=== PATIENT | male | born 1980 | race Caucasian/White ===

== ENCOUNTER 2021-05-29 19:46 | Emergency (ER) | payer SELFPAY ==
[2021-05-29] MEDS ORDERED: Ketorolac 30 MG/ML SDV IM ONE (20:15)
[2021-05-29] MEDS ORDERED: Orphenadrine 60 MG/2 ML Inj IM ONE (20:15)
[2021-05-29] MEDS ORDERED: Acetaminophen 325 MG Tab PO ONE (20:48)
== END 2021-05-29 21:27 | disposition home or self-care (01) ==
LOC: LB.ED 19:46
DX: U07.1 COVID-19 (principal); M54.42 Lumbago with sciatica, left side
CPT/HCPCS: 87430; 93005; 96372; 99284-25; A9270-GY; J1885; J2360; U0002